=== PATIENT | male | born 1960 | race Caucasian/White ===

== ENCOUNTER 2018-10-31 22:34 | Inpatient (IN) | payer OTHER, SELFPAY ==
[~2018-10-31] VITALS: Ht 195.6 cm; Wt 87.8 kg
--- NOTE | 2018-10-31 22:54 | NUR ---
PT PRESENTS TO THE ER C/O SOB. STATES HE HAS HAD SOB, WORSENING OVER THE PAST FEW DAYS. +COUGH WITH SPUTUM. PT STATES HE HAS A HX OF COPD AND HAS BEEN TAKING HIS BREATHING TX AT HOME WITHOUT RELIEF. PT IS BREATHLESS WHILE TALKING. SPEAKING 4 WORD SENTENCES. RA SAT 94%. DENIES ANY FEVER/CHILLS. PT REPORTS HE HAS HAD A RECENT CHANGE IN INSURANCE AND IS UNABLE TO SEE A PRIMARY CARE PHYSICIAN UNTIL THE END OF NOV. ALL MONITORING EQUIPMENT APPLIED. VITALS STABLE. SINUS TACH WITH NO ECTOPY NOTED. NO ST CHANGES PRESENT. WILL CONTINUE TO MONITOR.
--- NOTE | 2018-10-31 23:10 | NUR ---
PT RA O2 SAT DECREASED TO 86%, PT PLACED ON O2 VIA NC @ 4LPM. SATS INCREASED TO 97%
[2018-10-31 23:29] LABS: BASOPHILS # (AUTO) 0.03 x10^3/uL (0-0.1); BASOPHILS % (AUTO) 0 % (0-1); EOSINOPHILS # (AUTO) 1.74 x10^3/uL (0-0.4); EOSINOPHILS % (AUTO) 16 % (1-7); LYMPHOCYTES # (AUTO) 1.83 x10^3/uL (1-3.4); LYMPHOCYTES % (AUTO) 17 % (22-44); MD NO; MEAN CORPUSCULAR HEMOGLOBIN 31.7 pg (27.5-34.5); MEAN CORPUSCULAR HGB CONC 33.7 g/dL (33.2-36.2); MEAN CORPUSCULAR VOLUME 94.1 fL (81-97); MEAN PLATELET VOLUME 8.2 fL (7.4-10.4); MONOCYTES # (AUTO) 0.71 x10^3/uL (0.2-0.8); MONOCYTES % (AUTO) 7 % (2-9); NEUTROPHILS # (AUTO) 6.54 x10^3/uL (1.8-6.8); NEUTROPHILS % (AUTO) 60 % (42-75); PLATELET COUNT 336 x10^3/uL (130-400); RED BLOOD COUNT 4.93 x10^6/uL (4.38-5.82); RED CELL DISTRIBUTION WIDTH 15.7 % (9.4-14.8)
[2018-10-31] MEDS ORDERED: ALBUTEROL/IPRATROPIUM 2.5MG/0.5MG, 3 ML NPPB ONE (23:30)
[2018-10-31] MEDS ORDERED: SODIUM CHLORIDE FLUSH 10ML SYR IVF ONE (23:30)
[2018-10-31] MEDS ORDERED: ALBUTEROL/IPRATROPIUM 2.5MG/0.5MG, 3 ML ONE (23:32)
[2018-10-31 23:37] LABS: ALBUMIN 3.6 g/dL (3.4-5.0); ANION GAP 8 mmol/L (5-15); CALCIUM 8.4 mg/dL (8.5-10.1); CHLORIDE 110 mmol/L (98-107)
[2018-10-31 23:41] LABS: TROPONIN I < 0.015 ng/mL (0.000-0.045)
--- NOTE | 2018-10-31 23:49 | NUR ---
PT MEDICATED PER EMAR. 5 RIGHTS ADDRESSED.
[2018-11-01] MEDS ORDERED: FLUT1AER INH
--- NOTE | 2018-11-01 00:01 | NUR ---
HOSPITALIST AT BEDSIDE
--- NOTE | 2018-11-01 00:09 | NUR ---
REPORT TO MEDICAL RN
[2018-11-01] MEDS ORDERED: ONDANSETRON ODT 4 MG PO PRN (00:30)
[2018-11-01] MEDS ORDERED: POLYETHYLENE GLYCOL 17 GM PACKET PO PRN (00:30)
[2018-11-01] MEDS ORDERED: ACETAMINOPHEN 325 MG TABLET PO PRN (00:30)
[2018-11-01] MEDS ORDERED: BISACODYL 10 MG SUPP PR PRN (00:30)
[2018-11-01 00:35] VITALS: BP 107/67
[2018-11-01] MEDS: HEPARIN 5,000 UNITS/ML, 1ML SQ SCH ×3 (01:18→17:49)
[2018-11-01] MEDS ORDERED: ALBU0.63 NEB (01:30)
[2018-11-01] MEDS ORDERED: ALPR-475 PO (01:30)
[2018-11-01 03:45] VITALS: BP 108/76
[2018-11-01] MEDS: methylPREDNISolone SOD SUCC 125 MG/2 ML IVPush SCH ×3 (05:42→18:00)
[2018-11-01 07:15] VITALS: BP 109/72
[2018-11-01] MEDS: ALBUTEROL SULFATE 2.5 MG/3 ML NPPB SCH ×4 (07:30→20:30)
[2018-11-01] MEDS: BUDESONIDE 0.5 MG/2 ML INHA INH SCH ×2 (07:30→20:30)
[2018-11-01] MEDS: SENNA/DOCUSATE TABLET PO SCH (08:19)
[2018-11-01] MEDS: SODIUM CHLORIDE FLUSH 10ML SYR IVF SCH ×2 (08:19→21:00)
[2018-11-01] MEDS: DOXYCYCLINE 100MG TABLET PO SCH ×2 (13:12→19:35)
[2018-11-01 13:40] VITALS: BP 109/78
[2018-11-01 19:07] VITALS: BP 111/70
[2018-11-02] MEDS: methylPREDNISolone SOD SUCC 125 MG/2 ML IVPush SCH ×3 (00:11→11:54)
[2018-11-02] MEDS: HEPARIN 5,000 UNITS/ML, 1ML SQ SCH ×2 (00:11→08:16)
[2018-11-02 00:46] VITALS: BP 106/68
[2018-11-02 04:36] LABS: BASOPHILS # (AUTO) 0.02 x10^3/uL (0-0.1); BASOPHILS % (AUTO) 0 % (0-1); EOSINOPHILS % (AUTO) 0 % (1-7); LYMPHOCYTES # (AUTO) 1.33 x10^3/uL (1-3.4); LYMPHOCYTES % (AUTO) 9 % (22-44); MD NO; MEAN CORPUSCULAR HEMOGLOBIN 31.5 pg (27.5-34.5); MEAN CORPUSCULAR VOLUME 95.4 fL (81-97); MEAN PLATELET VOLUME 8.8 fL (7.4-10.4); MONOCYTES % (AUTO) 1 % (2-9); NEUTROPHILS # (AUTO) 13.67 x10^3/uL (1.8-6.8); NEUTROPHILS % (AUTO) 90 % (42-75); PLATELET COUNT 323 x10^3/uL (130-400); RED BLOOD COUNT 4.66 x10^6/uL (4.38-5.82); RED CELL DISTRIBUTION WIDTH 15.8 % (9.4-14.8)
[2018-11-02 04:41] LABS: ALANINE AMINOTRANSFERASE 17 U/L (12-78); ALBUMIN 3.5 g/dL (3.4-5.0); ANION GAP 8 mmol/L (5-15); CALCIUM 8.7 mg/dL (8.5-10.1); CHLORIDE 111 mmol/L (98-107); CREATININE 1.09 mg/dL (0.7-1.3)
[2018-11-02 04:44] LABS: ALKALINE PHOSPHATASE 103 U/L (45-117); BILIRUBIN,TOTAL 0.4 mg/dL (0.2-1.0); TOTAL PROTEIN 6.8 g/dL (6.4-8.2)
[2018-11-02] MEDS: BUDESONIDE 0.5 MG/2 ML INHA INH SCH (06:29)
[2018-11-02] MEDS: ALBUTEROL SULFATE 2.5 MG/3 ML NPPB SCH ×3 (06:29→14:11)
[2018-11-02 07:44] VITALS: BP 112/62
[2018-11-02] MEDS: SODIUM CHLORIDE FLUSH 10ML SYR IVF SCH (08:15)
[2018-11-02] MEDS: SENNA/DOCUSATE TABLET PO SCH (08:16)
[2018-11-02] MEDS: DOXYCYCLINE 100MG TABLET PO SCH (08:16)
[2018-11-02 13:00] VITALS: BP 105/61
[2018-11-02] MEDS ORDERED: FLUT1AER INH (15:04)
[2018-11-02] MEDS ORDERED: PRED5TAB PO (15:04)
[2018-11-02] MEDS ORDERED: DOXY100T PO (15:04)
[2018-11-02] MEDS ORDERED: IPRA3AMP30 INH (15:04)
== END 2018-11-02 16:25 | disposition home or self-care (01) | DRG 189 ==
LOC: ED 23:47 → EDIP 23:48 → 3NW 11-01 00:22
PROVIDERS: ADMIT Family Medicine; ATTEND Family Medicine
DX: J96.01 Acute respiratory failure with hypoxia (principal); J44.1 Chronic obstructive pulmonary disease with (acute) exacerbation; R00.0 Tachycardia, unspecified; F17.210 Nicotine dependence, cigarettes, uncomplicated; F41.9 Anxiety disorder, unspecified; I25.10 Atherosclerotic heart disease of native coronary artery without angina pectoris; I25.2 Old myocardial infarction; Z90.81 Acquired absence of spleen; Z95.5 Presence of coronary angioplasty implant and graft
CPT/HCPCS: 36415; 99285; J7613; J7626; 71045; 80048; 80053; 82040; 83880; 84484; 85025; 93005; 93306; 94640; G0378; J1644; J2930; J7512

== ENCOUNTER 2018-11-25 20:24 | Inpatient (IN) | payer OTHER ==
[~2018-11-25] VITALS: Ht 182.9 cm; Wt 90.3 kg
[~2018-11-25 20:24] MED LIST: ALBU0.63 NEB; ALPR-475 PO; DOXY100T PO; FLUT1AER INH; IPRA3AMP30 INH; PRED5TAB PO
[2018-11-25] MEDS ORDERED: ALBUTEROL/IPRATROPIUM 2.5MG/0.5MG, 3 ML NPPB ONE (20:30)
[2018-11-25] MEDS ORDERED: SODIUM CHLORIDE FLUSH 10ML SYR IVF ONE (20:30)
[2018-11-25] MEDS ORDERED: ALBUTEROL/IPRATROPIUM 2.5MG/0.5MG, 3 ML ONE (20:39)
--- NOTE | 2018-11-25 20:45 | NUR ---
rt in to see pt. pt told rt he just did a breathing tx at home and took a xanax. pt not given breathing tx at this time. pt in hospital gown. placed on vitals and cafeteria monitor.
[2018-11-25 20:47] LABS: BASOPHILS # (AUTO) 0.02 x10^3/uL (0-0.1); BASOPHILS % (AUTO) 0 % (0-1); EOSINOPHILS # (AUTO) 1.03 x10^3/uL (0-0.4); EOSINOPHILS % (AUTO) 12 % (1-7); LYMPHOCYTES # (AUTO) 2.47 x10^3/uL (1-3.4); LYMPHOCYTES % (AUTO) 29 % (22-44); MD NO; MEAN CORPUSCULAR HEMOGLOBIN 32.1 pg (27.5-34.5); MEAN CORPUSCULAR HGB CONC 33.9 g/dL (33.2-36.2); MEAN CORPUSCULAR VOLUME 94.8 fL (81-97); MEAN PLATELET VOLUME 7.8 fL (7.4-10.4); MONOCYTES # (AUTO) 0.59 x10^3/uL (0.2-0.8); MONOCYTES % (AUTO) 7 % (2-9); NEUTROPHILS # (AUTO) 4.35 x10^3/uL (1.8-6.8); NEUTROPHILS % (AUTO) 51 % (42-75); PLATELET COUNT 280 x10^3/uL (130-400); RED BLOOD COUNT 4.91 x10^6/uL (4.38-5.82)
[2018-11-25 20:59] LABS: ALBUMIN 3.7 g/dL (3.4-5.0); ANION GAP 4 mmol/L (5-15); CALCIUM 8.4 mg/dL (8.5-10.1); CHLORIDE 112 mmol/L (98-107); CREATININE 1.25 mg/dL (0.7-1.3)
[2018-11-25] MEDS ORDERED: PLEASE ENTER HEIGHT AND WEIGHT MC SCH (21:00)
[2018-11-25 21:03] LABS: TROPONIN I < 0.015 ng/mL (0.000-0.045)
[2018-11-25] MEDS ORDERED: AZITHROMYCIN 500 MG in SODIUM CHLORIDE 0.9% 250 ML IV ONE (21:30)
--- NOTE | 2018-11-25 22:47 | NUR ---
REPORT TO LESLY GIVENS FOR ROOM 442
[2018-11-25 23:15] VITALS: BP 112/76
[2018-11-25] MEDS ORDERED: SODIUM CHLORIDE 0.9% 1,000 ML IV SCH (23:32)
[2018-11-26] MEDS ORDERED: BISACODYL 10 MG SUPP PR PRN
[2018-11-26] MEDS ORDERED: DOCUSATE 100 MG CAPSULE PO PRN
[2018-11-26] MEDS ORDERED: ACETAMINOPHEN 325 MG TABLET PO PRN
[2018-11-26] MEDS ORDERED: ONDANSETRON 2MG/ML, 2ML IVPush PRN
[2018-11-26] MEDS ORDERED: GABAPENTIN 300 MG CAPSULE PO PRN
[2018-11-26] MEDS ORDERED: hydrALAzine 20 MG/ML, 1ML IVPush PRN
[2018-11-26] MEDS ORDERED: morphine SULFATE 10 MG/ML, 1ML IVPush PRN
[2018-11-26] MEDS ORDERED: OXYcodone IR 5MG TABLET PO PRN
[2018-11-26] MEDS ORDERED: PROMETHAZINE 25 MG/ML, 1ML IM PRN
[2018-11-26] MEDS ORDERED: ONDANSETRON ODT 4 MG PO PRN
[2018-11-26] MEDS ORDERED: LABETALOL 5MG/ML, 20ML IVPush PRN
[2018-11-26] MEDS ORDERED: POLYETHYLENE GLYCOL 17 GM PACKET PO PRN
[2018-11-26 00:19] LABS: FREE T4 (FREE THYROXINE) 1.09 ng/dL (0.76-1.46); HEMOGLOBIN A1C 5.9 % (4.2-6.3); THYROID STIMULATING HORMONE 1.93 mIU/L (0.358-3.740)
[2018-11-26] MEDS ORDERED: OMNIPAQUE 350 MG/ML, 100ML BOTTLE ONE (00:38)
[2018-11-26] MEDS ORDERED: ALBUTEROL/IPRATROPIUM 2.5MG/0.5MG, 3 ML NPPB PRN (01:00)
[2018-11-26] MEDS: methylPREDNISolone SOD SUCC 125 MG/2 ML IVPush SCH ×3 (01:06→17:42)
[2018-11-26] MEDS: FAMOTIDINE 20 MG/2 ML IVPush SCH ×3 (01:06→21:31)
[2018-11-26] MEDS: HEPARIN 5,000 UNITS/ML, 1ML SQ SCH ×3 (01:07→17:42)
[2018-11-26 02:23] LABS: BASOPHILS # (AUTO) 0.05 x10^3/uL (0-0.1); BASOPHILS % (AUTO) 1 % (0-1); EOSINOPHILS # (AUTO) 0.31 x10^3/uL (0-0.4); EOSINOPHILS % (AUTO) 5 % (1-7); LYMPHOCYTES # (AUTO) 0.76 x10^3/uL (1-3.4); LYMPHOCYTES % (AUTO) 11 % (22-44); MD NO; MEAN CORPUSCULAR HEMOGLOBIN 31.6 pg (27.5-34.5); MEAN CORPUSCULAR HGB CONC 33.4 g/dL (33.2-36.2); MEAN CORPUSCULAR VOLUME 94.4 fL (81-97); MEAN PLATELET VOLUME 7.8 fL (7.4-10.4); MONOCYTES # (AUTO) 0.09 x10^3/uL (0.2-0.8); MONOCYTES % (AUTO) 1 % (2-9); NEUTROPHILS # (AUTO) 5.77 x10^3/uL (1.8-6.8); NEUTROPHILS % (AUTO) 83 % (42-75); PLATELET COUNT 258 x10^3/uL (130-400); RED BLOOD COUNT 4.73 x10^6/uL (4.38-5.82); RED CELL DISTRIBUTION WIDTH 15.7 % (9.4-14.8)
[2018-11-26 02:30] VITALS: BP 113/79
[2018-11-26 02:32] VITALS: BP 113/79
[2018-11-26 02:34] LABS: ALBUMIN 3.4 g/dL (3.4-5.0); ANION GAP 5 mmol/L (5-15); CALCIUM 8.1 mg/dL (8.5-10.1); CHLORIDE 114 mmol/L (98-107)
[2018-11-26 02:38] LABS: ALANINE AMINOTRANSFERASE 24 U/L (12-78); ALKALINE PHOSPHATASE 99 U/L (45-117); BILIRUBIN,TOTAL 0.5 mg/dL (0.2-1.0); CHOL/HDL RATIO 4.7; CHOLESTEROL, TOTAL 163 mg/dL (140-239); CREATININE 1.02 mg/dL (0.7-1.3); HDL CHOL % 21 % (26-37); HDL CHOLESTEROL (DIRECT) 35 mg/dL (40-60); LDL CHOLESTEROL,CALCULATED 112 mg/dL (54-169); LDL/HDL RATIO 3.2 (0.5-3.0); TOTAL PROTEIN 6.7 g/dL (6.4-8.2); TRIGLYCERIDES 79 mg/dL (50-200); TROPONIN I < 0.015 ng/mL (0.000-0.045); VLDL CHOLESTEROL 16 mg/dL (0-25)
[2018-11-26 07:35] VITALS: BP 115/72
[2018-11-26 08:21] LABS: TROPONIN I < 0.015 ng/mL (0.000-0.045)
[2018-11-26] MEDS: ALBUTEROL/IPRATROPIUM 2.5MG/0.5MG, 3 ML NPPB SCH ×3 (08:30→20:36)
[2018-11-26] MEDS: BUDESONIDE 0.5 MG/2 ML INHA NPPB SCH ×2 (08:30→20:36)
[2018-11-26] MEDS: DOXYCYCLINE 100MG TABLET PO SCH ×2 (09:07→21:31)
[2018-11-26] MEDS: CETIRIZINE 10 MG TABLET PO SCH (09:07)
[2018-11-26 12:39] VITALS: BP 103/75
[2018-11-26 19:00] VITALS: BP 110/73
[2018-11-27 01:19] VITALS: BP 91/56
[2018-11-27] MEDS: HEPARIN 5,000 UNITS/ML, 1ML SQ SCH ×3 (02:07→18:50)
[2018-11-27] MEDS: ALBUTEROL/IPRATROPIUM 2.5MG/0.5MG, 3 ML NPPB SCH ×4 (03:00→21:18)
[2018-11-27] MEDS: methylPREDNISolone SOD SUCC 125 MG/2 ML IVPush SCH (06:22)
[2018-11-27 07:15] VITALS: BP 105/71
[2018-11-27] MEDS ORDERED: REGADENOSON 0.4 MG/5 ML SYRINGE ONE (08:33)
[2018-11-27 08:50] LABS: % IRON SATURATION 32 % (20-55); IRON LEVEL 121 mcg/dL (65-175); TOTAL IRON BINDING CAPACITY 383 mcg/dL (250-450)
[2018-11-27] MEDS: BUDESONIDE 0.5 MG/2 ML INHA NPPB SCH ×2 (10:10→21:18)
[2018-11-27] MEDS: DOXYCYCLINE 100MG TABLET PO SCH ×2 (10:29→19:39)
[2018-11-27] MEDS: CETIRIZINE 10 MG TABLET PO SCH (10:29)
[2018-11-27] MEDS: FAMOTIDINE 20 MG/2 ML IVPush SCH ×2 (10:29→19:39)
[2018-11-27 12:31] VITALS: BP 105/71
[2018-11-27] MEDS ORDERED: VERAPAMIL 2.5 MG/ML, 2ML ONE (14:55)
[2018-11-27] MEDS ORDERED: MIDAZOLAM 1 MG/ML, 2ML ONE ×2 (14:55)
[2018-11-27] MEDS ORDERED: FENTANYL PF 100 MCG/2ML ONE (14:55)
[2018-11-27] MEDS ORDERED: HEPARIN 1,000 UNITS/ML, 10ML ONE (14:55)
[2018-11-27] MEDS ORDERED: LIDOCAINE-MPF 1%, 5ML ONE (14:55)
[2018-11-27] MEDS ORDERED: TICAGRELOR 90 MG TABLET ONE (15:19)
[2018-11-27] MEDS ORDERED: BIVALIRUDIN 250 MG ONE (15:19)
[2018-11-27 20:10] VITALS: BP 119/67
[2018-11-28] MEDS: HEPARIN 5,000 UNITS/ML, 1ML SQ SCH ×2 (01:11→11:17)
[2018-11-28 01:55] VITALS: BP 108/69
[2018-11-28] MEDS: ALBUTEROL/IPRATROPIUM 2.5MG/0.5MG, 3 ML NPPB SCH ×3 (02:50→14:53)
[2018-11-28 07:04] VITALS: BP 100/70
[2018-11-28] MEDS: DOXYCYCLINE 100MG TABLET PO SCH (08:17)
[2018-11-28] MEDS: CETIRIZINE 10 MG TABLET PO SCH (08:17)
[2018-11-28] MEDS: FAMOTIDINE 20 MG/2 ML IVPush SCH (08:18)
[2018-11-28] MEDS: BUDESONIDE 0.5 MG/2 ML INHA NPPB SCH (08:46)
[2018-11-28 11:19] VITALS: BP 103/65
[2018-11-28] MEDS ORDERED: FENTANYL PF 100 MCG/2ML ONE (11:51)
[2018-11-28] MEDS ORDERED: NITROGLYCERIN 5 MG/ML, 10ML ONE (11:52)
[2018-11-28] MEDS ORDERED: LIDOCAINE 2%, 20ML ONE (11:52)
[2018-11-28] MEDS ORDERED: VERAPAMIL 2.5 MG/ML, 2ML ONE (11:52)
[2018-11-28] MEDS ORDERED: BIVALIRUDIN 250 MG ONE (11:52)
[2018-11-28] MEDS ORDERED: HEPARIN 1,000 UNITS/ML, 10ML ONE (11:52)
[2018-11-28] MEDS ORDERED: TICAGRELOR 90 MG TABLET ONE (11:52)
[2018-11-28] MEDS ORDERED: MIDAZOLAM 1 MG/ML, 2ML ONE (11:52)
[2018-11-28] MEDS ORDERED: SODIUM CHLORIDE 0.9% 1,000 ML IV SCH (12:40)
[2018-11-28 14:00] VITALS: BP 119/75
[2018-11-28] MEDS ORDERED: DOXY100T PO (16:22)
[2018-11-28] MEDS ORDERED: METH4TAB2 PO (16:22)
[2018-11-28 17:00] VITALS: BP 120/75
== END 2018-11-28 17:29 | disposition home or self-care (01) | DRG 286 ==
LOC: ED 21:14 → EDIP 22:23 → 4NOR 23:00 → 5SO 11-27 14:13 → DCLOUNGE 11-28 17:12
PROVIDERS: ADMIT Internal Medicine; ATTEND Internal Medicine
PROC: 4A023N7 Measurement of Cardiac Sampling and Pressure, Left Heart, Percutaneous Approach (ICD-10-PCS; principal; 2018-11-28)
PROC: B2151ZZ Fluoroscopy of Left Heart using Low Osmolar Contrast (ICD-10-PCS; 2018-11-28)
PROC: B2111ZZ Fluoroscopy of Multiple Coronary Arteries using Low Osmolar Contrast (ICD-10-PCS; 2018-11-28)
DX: T82.855A Stenosis of coronary artery stent, initial encounter (principal); J96.01 Acute respiratory failure with hypoxia; J44.1 Chronic obstructive pulmonary disease with (acute) exacerbation; I25.10 Atherosclerotic heart disease of native coronary artery without angina pectoris; F41.9 Anxiety disorder, unspecified; K40.90 Unilateral inguinal hernia, without obstruction or gangrene, not specified as recurrent; Z90.81 Acquired absence of spleen; Z95.5 Presence of coronary angioplasty implant and graft; Z77.22 Contact with and (suspected) exposure to environmental tobacco smoke (acute) (chronic)
CPT/HCPCS: 36415; 93458; 99285; J3490; J7620; J7626; 0399T; 71045; 71275; 78452; 80048; 80053; 80061; 82040; 83036; 83540; 83550; 83735; 84439; 84443; 84484; 85025; 93005; 93017; 93306; 94640; 96365; 99156; C1769; C1894; G0378; J0456; J0583; J1644; J2250; J2785; J3010; Q9967; A9502; C9898; J2930; J7030; J7050; J7512

== ENCOUNTER 2018-12-31 20:16 | Inpatient (IN) | payer OTHER ==
[~2018-12-31] VITALS: Ht 195.6 cm; Wt 90.4 kg
[~2018-12-31 20:16] MED LIST changes: +METH4TAB2 PO
[2018-12-31] MEDS ORDERED: ALBUTEROL/IPRATROPIUM 2.5MG/0.5MG, 3 ML ONE (20:45)
--- NOTE | 2018-12-31 20:50 | NUR ---
PT PRESENTED WITH C/O SOB ALL DAY, HX OF COPD. 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 PT. IS ABLE TO SPEAK IN FULL SENTENCES. MONITORS APPLIED, SIDERAILS UP X2, CALL LIGHT WITHIN REACH. PT MEDICATED PER DEC. RT AT BEDSIDE FOR T/X
[2018-12-31 20:53] LABS: BASOPHILS # (AUTO) 0.07 x10^3/uL (0-0.1); BASOPHILS % (AUTO) 1 % (0-1); EOSINOPHILS # (AUTO) 1.72 x10^3/uL (0-0.4); EOSINOPHILS % (AUTO) 18 % (1-7); LYMPHOCYTES # (AUTO) 2.43 x10^3/uL (1-3.4); LYMPHOCYTES % (AUTO) 26 % (22-44); MD NO; MEAN CORPUSCULAR HEMOGLOBIN 32.1 pg (27.5-34.5); MEAN CORPUSCULAR HGB CONC 33.7 g/dL (33.2-36.2); MEAN CORPUSCULAR VOLUME 95.1 fL (81-97); MEAN PLATELET VOLUME 7.9 fL (7.4-10.4); MONOCYTES # (AUTO) 0.59 x10^3/uL (0.2-0.8); MONOCYTES % (AUTO) 6 % (2-9); NEUTROPHILS # (AUTO) 4.55 x10^3/uL (1.8-6.8); NEUTROPHILS % (AUTO) 49 % (42-75); PLATELET COUNT 364 x10^3/uL (130-400); RED BLOOD COUNT 4.73 x10^6/uL (4.38-5.82); RED CELL DISTRIBUTION WIDTH 15.7 % (9.4-14.8)
[2018-12-31] MEDS: ALBUTEROL/IPRATROPIUM 2.5MG/0.5MG, 3 ML NPPB SCH ×2 (20:56→22:45)
[2018-12-31 21:06] LABS: ALBUMIN 3.8 g/dL (3.4-5.0); ANION GAP 6 mmol/L (5-15); CALCIUM 8.7 mg/dL (8.5-10.1); CHLORIDE 114 mmol/L (98-107); CREATININE 1.08 mg/dL (0.7-1.3)
[2018-12-31 21:10] LABS: TROPONIN I < 0.015 ng/mL (0.000-0.045)
--- NOTE | 2018-12-31 21:44 | NUR ---
PT UP TO RR WITH O2 AT 4L N/C IN USE, NAD AND STEADY GAIT NOTED
[2018-12-31] MEDS ORDERED: ALBUTEROL SULFATE 2.5 MG/3 ML NPPB PRN (22:00)
--- NOTE | 2018-12-31 22:09 | NUR ---
PT RESTING ON GURNEY WITH RESPIRATORY T/X IN PROCESS, DENIES NEEDS, CALL LIGHT WITHIN REACH
--- NOTE | 2018-12-31 22:36 | NUR ---
PT RESTING CALMLY STATED ' I FEEL A LITTLE BETTER", NADN, RESPIRATIONS EVEN AND UNLABORED. MONITORS IN PLACE, CALL LIGHT WITHIN REACH. CHART UP FOR RECHECK
[2018-12-31] MEDS ORDERED: SODIUM CHLORIDE 0.9% 1,000 ML IV SCH (23:13)
[2018-12-31] MEDS ORDERED: ONDANSETRON 2MG/ML, 2ML IVPush PRN (23:30)
[2018-12-31] MEDS ORDERED: BISACODYL 10 MG SUPP PR PRN (23:30)
[2018-12-31] MEDS ORDERED: OXYcodone IR 5MG TABLET PO PRN (23:30)
[2018-12-31] MEDS ORDERED: PROMETHAZINE 25 MG/ML, 1ML IM PRN (23:30)
[2018-12-31] MEDS ORDERED: ACETAMINOPHEN 325 MG TABLET PO PRN (23:30)
[2018-12-31] MEDS ORDERED: morphine SULFATE 10 MG/ML, 1ML IVPush PRN (23:30)
[2018-12-31] MEDS ORDERED: ONDANSETRON ODT 4 MG PO PRN (23:30)
[2018-12-31] MEDS ORDERED: POLYETHYLENE GLYCOL 17 GM PACKET PO PRN (23:30)
[2018-12-31] MEDS ORDERED: DOCUSATE 100 MG CAPSULE PO PRN (23:30)
[2018-12-31] MEDS ORDERED: hydrALAzine 20 MG/ML, 1ML IVPush PRN (23:30)
[2019-01-01] MEDS ORDERED: ALBUTEROL SULFATE 2.5 MG/3 ML NPPB PRN
[2019-01-01 00:09] VITALS: BP 111/71
[2019-01-01] MEDS: methylPREDNISolone SOD SUCC 125 MG/2 ML IVPush SCH ×4 (00:54→17:53)
[2019-01-01] MEDS: HEPARIN 5,000 UNITS/ML, 1ML SQ SCH ×3 (00:55→17:53)
[2019-01-01] MEDS: GUAIFENESIN 200 MG TABLET PO SCH ×3 (00:55→20:42)
[2019-01-01] MEDS: DOXYCYCLINE 100MG TABLET PO SCH ×3 (00:55→20:42)
[2019-01-01 01:41] VITALS: BP 92/56
[2019-01-01 05:36] LABS: MEAN CORPUSCULAR HEMOGLOBIN 32.2 pg (27.5-34.5); MEAN CORPUSCULAR HGB CONC 33.8 g/dL (33.2-36.2); MEAN CORPUSCULAR VOLUME 95.3 fL (81-97); MEAN PLATELET VOLUME 8.3 fL (7.4-10.4); PLATELET COUNT 339 x10^3/uL (130-400); RED BLOOD COUNT 4.48 x10^6/uL (4.38-5.82); RED CELL DISTRIBUTION WIDTH 15.5 % (9.4-14.8)
[2019-01-01 05:39] LABS: ALBUMIN 3.6 g/dL (3.4-5.0); ANION GAP 6 mmol/L (5-15); CALCIUM 8.4 mg/dL (8.5-10.1); CHLORIDE 113 mmol/L (98-107)
[2019-01-01 05:45] LABS: ALANINE AMINOTRANSFERASE 19 U/L (12-78); ALKALINE PHOSPHATASE 96 U/L (45-117); BILIRUBIN,TOTAL 0.6 mg/dL (0.2-1.0); TOTAL PROTEIN 6.6 g/dL (6.4-8.2)
[2019-01-01 06:17] LABS: BASOPHILS # (AUTO) 0.01 x10^3/uL (0-0.1); BASOPHILS % (AUTO) 0 % (0-1); EOSINOPHILS # (AUTO) 0.11 x10^3/uL (0-0.4); EOSINOPHILS % (AUTO) 2 % (1-7); LYMPHOCYTES # (AUTO) 0.69 x10^3/uL (1-3.4); LYMPHOCYTES % (AUTO) 14 % (22-44); MD SCAN; MONOCYTES # (AUTO) 0.04 x10^3/uL (0.2-0.8); MONOCYTES % (AUTO) 1 % (2-9); NEUTROPHILS # (AUTO) 4.26 x10^3/uL (1.8-6.8); NEUTROPHILS % (AUTO) 83 % (42-75)
[2019-01-01 08:24] VITALS: BP 99/62
[2019-01-01] MEDS: ALBUTEROL SULFATE 2.5 MG/3 ML NPPB SCH ×3 (08:35→20:57)
[2019-01-01] MEDS: BUDESONIDE 0.5 MG/2 ML INHA NPPB SCH ×2 (08:35→20:57)
[2019-01-01 13:20] VITALS: BP 98/68
[2019-01-01 20:14] VITALS: BP 105/71
[2019-01-02] MEDS: HEPARIN 5,000 UNITS/ML, 1ML SQ SCH ×2 (00:41→09:07)
[2019-01-02] MEDS: methylPREDNISolone SOD SUCC 125 MG/2 ML IVPush SCH ×3 (00:41→12:57)
[2019-01-02 02:09] VITALS: BP 102/51
[2019-01-02] MEDS: ALBUTEROL SULFATE 2.5 MG/3 ML NPPB SCH ×2 (02:50→09:00)
[2019-01-02] MEDS: BUDESONIDE 0.5 MG/2 ML INHA NPPB SCH (09:00)
[2019-01-02] MEDS: GUAIFENESIN 200 MG TABLET PO SCH (09:07)
[2019-01-02] MEDS: DOXYCYCLINE 100MG TABLET PO SCH (09:07)
[2019-01-02 09:12] VITALS: BP 100/62
[2019-01-02] MEDS ORDERED: FLUT1BLS INH (12:26)
[2019-01-02] MEDS ORDERED: IPRA3AMP30 INH (12:26)
[2019-01-02] MEDS ORDERED: PRED5TAB PO (12:26)
[2019-01-02] MEDS ORDERED: DOXY100T PO (12:26)
== END 2019-01-02 15:38 | disposition home or self-care (01) | DRG 189 ==
LOC: ED 22:02 → EDIP 22:50 → 4NOR 23:55 → DCLOUNGE 01-02 15:26
PROVIDERS: ADMIT Internal Medicine; ATTEND Internal Medicine
DX: J96.01 Acute respiratory failure with hypoxia (principal); F41.9 Anxiety disorder, unspecified; I25.10 Atherosclerotic heart disease of native coronary artery without angina pectoris; J43.9 Emphysema, unspecified; Z87.891 Personal history of nicotine dependence; Z90.81 Acquired absence of spleen; Z95.5 Presence of coronary angioplasty implant and graft
CPT/HCPCS: 36415; 99285; J7613; J7620; J7626; 71046; 80048; 80053; 82040; 83735; 83880; 84484; 85025; 93005; 94640; G0378; J1644; J2930; J7030; J7512